=== PATIENT | female | born 1930 | race Caucasian/White ===

== ENCOUNTER 2017-04-01 20:48 | Emergency (ER) | payer MEDICARE, OTHER ==
[~2017-04-01] VITALS: Ht 160 cm; Wt 77.6 kg
[~2017-04-01 20:48] MED LIST: ACAI500 MG PO; ALENDRONATE SOD10 MG PO; ARICEPT10 MG PO; ATROVENT HFA12.9 GM INH; ATROVENT30 ML NAS; CINNAMON500 MG PO; CRANBERRY200 MG PO; DONEPEZIL HCL10 MG PO; FISH OIL 1,0001 EAC3 PO; FISH OIL 1,2001 EAC5 PO; GARLIC1000 MG PO; GINGER ROOT550 MG PO; GREEN TEA250 MG PO; IPRATROPIUM BRO30 ML INH; LUTEIN20 MG PO; MAGNESIUM400 MG PO; MELOXICAM7.5 MG PO; MOBIC7.5 MG PO; NAC600 MG PO; NORCO 5-325 TA1 EACH PO; OCUVITE TABLET1 EAC1 PO; OMEPRAZOLE20 MG PO; PRESERVISION A1 EACH PO; SELENIUM200 MC2 PO; SIMVASTATIN20 MG PO; SUPER B COMPLE150 MG PO; TESSALON PERLE100 MG PO; TUMS ULTRA400 MG PO; TURMERIC500 MG PO; ULTRAM50 MG PO; VITAMIN B COMP1 EACH PO; VITAMIN B-121000 MCG PO; VITAMIN C1000 MG; VITAMIN D1000 UNI1 PO; VITAMIN D31000 UNIT PO; VITAMIN E400 UNI2 PO; VITAMIN E400 UNI6 PO
== END 2017-04-01 23:42 | disposition home or self-care (01) ==
LOC: ED 20:48
DX: J84.10 Pulmonary fibrosis, unspecified (principal); Z99.81 Dependence on supplemental oxygen; Z87.891 Personal history of nicotine dependence; Z90.49 Acquired absence of other specified parts of digestive tract; Z88.2 Allergy status to sulfonamides; Z88.8 Allergy status to other drugs, medicaments and biological substances; Z79.899 Other long term (current) drug therapy
CPT/HCPCS: 71020; 80053; 85025; 94640; 99284

== ENCOUNTER 2018-01-29 06:16 | Emergency (ER) | payer MEDICARE, OTHER ==
[~2018-01-29] VITALS: Ht 160 cm; Wt 77.7 kg
[2018-01-29] MEDS ORDERED: ASPIRIN81 MG PO (06:26)
[2018-01-29] MEDS ORDERED: LIPITOR20 MG PO (06:28)
== END 2018-01-29 08:30 | disposition home or self-care (01) ==
LOC: ED 06:16
PROC: 0HQ0XZZ Repair Scalp Skin, External Approach (ICD-10-PCS; principal; 2018-01-29)
DX: S01.01XA Laceration without foreign body of scalp, initial encounter (principal); Z87.891 Personal history of nicotine dependence; Z88.2 Allergy status to sulfonamides; Z91.018 Allergy to other foods; Z79.82 Long term (current) use of aspirin; Z79.899 Other long term (current) drug therapy; W22.8XXA Striking against or struck by other objects, initial encounter
CPT/HCPCS: 12001; 99283

== ENCOUNTER 2019-11-08 11:12 | Emergency (ER) | payer MEDICARE, OTHER ==
[~2019-11-08] VITALS: Ht 160 cm; Wt 77.7 kg
[~2019-11-08 11:12] MED LIST changes: +ASPIRIN81 MG PO; +LIPITOR20 MG PO
[2019-11-08] MEDS ORDERED: LASIX20 MG PO (14:34)
[2019-11-08] MEDS ORDERED: K-TAB10 MEQ PO (14:34)
--- NOTE | 2019-11-08 18:08 | EKG ---
[facility] [address] [facility] [place], [place] [address] Signed Normal sinus rhythm with sinus arrhythmia Minimal voltage criteria for LVH, may be normal variant Borderline ECG No previous ECGs available Confirmed by KIMI DE LOS SANTOS DO ([id number]) on 11/08/2019 6:08:07 PM Electronically Signed By: KIMI DE LOS SANTOS DO 11/08/19 1808 PATIENT NAME: JORDY PUENTE Electrocardiogram DATE OF : 32 PHYSICIAN: KIMI DE LOS SANTOS DO REPORT #: [id number] REPORT IS CONFIDENTIAL AND NOT TO BE RELEASED WITHOUT AUTHORIZATION
== END 2019-11-08 15:27 | disposition home or self-care (01) ==
LOC: ED 11:12
DX: R60.0 Localized edema (principal); G47.30 Sleep apnea, unspecified; Z87.891 Personal history of nicotine dependence; Z91.02 Food additives allergy status; Z88.2 Allergy status to sulfonamides; Z79.899 Other long term (current) drug therapy; Z79.82 Long term (current) use of aspirin
CPT/HCPCS: 71045; 80053; 81001; 83735; 83880; 84484; 85025; 93005; 93010; 93970; 99285-25; J1940

== ENCOUNTER 2021-03-28 17:30 | Emergency (ER) | payer MEDICARE, OTHER ==
[~2021-03-28] VITALS: Ht 160 cm; Wt 75.8 kg
[~2021-03-28 17:30] MED LIST changes: +K-TAB10 MEQ PO; +LASIX20 MG PO
[2021-03-28] MEDS ORDERED: BUDESONIDE0.5 MG/2 M INH (17:44)
[2021-03-28] MEDS ORDERED: N-ACETYL-L-CYS600 MG PO (17:48)
[2021-03-28] MEDS ORDERED: IPRATROPIUM BRO15 ML NAS (17:49)
--- NOTE | 2021-03-29 12:06 | EKG ---
[facility] [address] [facility] [place] [address] Signed Normal sinus rhythm Moderate voltage criteria for LVH, may be normal variant Borderline ECG When compared with ECG of 08-NOV-2019 11:52, T wave amplitude has decreased in Lateral leads Confirmed by NINO PHILLIPS MD ([id number]) on 03/29/2021 12:05:59 PM Electronically Signed By: NINO PHILLIPS MD 03/29/21 1206 PATIENT NAME: JORDY PUENTE Electrocardiogram DATE OF : 32 PHYSICIAN: NINO PHILLIPS MD REPORT #: [id number] REPORT IS CONFIDENTIAL AND NOT TO BE RELEASED WITHOUT AUTHORIZATION
== END 2021-03-28 21:21 | disposition home or self-care (01) ==
LOC: ED 17:30
DX: M71.22 Synovial cyst of popliteal space [Baker], left knee (principal); R94.31 Abnormal electrocardiogram [ECG] [EKG]; R60.0 Localized edema; G47.30 Sleep apnea, unspecified; Z87.891 Personal history of nicotine dependence; Z88.2 Allergy status to sulfonamides; Z91.018 Allergy to other foods; Z79.899 Other long term (current) drug therapy; Z79.82 Long term (current) use of aspirin
CPT/HCPCS: 71045; 80048; 84484; 85025; 93005; 93010; 93971; 99285-25